=== PATIENT | male | born 1970 | race Caucasian/White ===

== ENCOUNTER 2020-02-07 08:20 | Outpatient (CLI) | payer OTHER, SELFPAY ==
[2020-02-07 08:32] LABS: Hematocrit 49.1 % (40.0-54.0); Hemoglobin 16.5 g/dL (14.0-18.0); Mean Corpuscular HGB Conc 33.6 g/dL (32.0-36.0); Mean Corpuscular Hemoglobin 31.4 pg (27.0-31.0); Mean Corpuscular Volume 93.3 fL (78.0-102.0); Platelet Count Result 222 K/mm3 (150-420); Red Blood Count 5.26 M/mm3 (4.70-6.10); Red Cell Distribution Width 14.4 % (11.6-14.4); White Blood Count 8.1 K/mm3 (4.8-10.8)
[2020-02-07 10:00] LABS: Alanine Aminotransferase 39 U/L (16-63); Albumin Level 3.9 g/dL (3.4-5.0); Alkaline Phosphatase 85 U/L (46-116); Anion Gap 11.9 mmol/L (7-16); Aspartate Amino Transferase 24 U/L (15-37); Bilirubin,Total 0.3 mg/dL (0.00-1.00); Blood Urea Nitrogen 13 mg/dL (7-18); Calcium 8.6 mg/dL (8.5-10.1); Carbon Dioxide 31 mmol/L (21-32); Chloride 104 mmol/L (98-108); Cholesterol 217 mg/dL (0-200); Estimated Glomerular Filt Rate > 60; Glucose 101 mg/dL (70-99); HDL Direct 61 mg/dL (40-60); LDL Cholesterol Calculated 144 mg/dL (<130); Osmolality Calculated 294 mOsm/kg (285-295); Potassium 4.9 mmol/L (3.5-5.1); Sodium 142 mmol/L (136-145); Total Protein 6.9 g/dL (6.4-8.2); Triglycerides 58 mg/dL (0-150)
== END 2020-02-07 08:21 | disposition home or self-care (01) ==
PROVIDERS: PCP Family Medicine; Visit Provider Family Medicine
DX: F41.1 Generalized anxiety disorder (principal); E78.5 Hyperlipidemia, unspecified
CPT/HCPCS: 36415; 80053; 80061; 85027

== ENCOUNTER 2023-01-13 09:19 | Emergency (ER) | payer OTHER, SELFPAY ==
[2023-01-13] VITALS (13 sets, daily range): BP systolic 142–157; BP diastolic 78–107; PULSE 65–75; RESP 14–19; TEMP 36.7; O2SAT 96–100
--- NOTE | ~2023-01-13 | XR_ITS ---
EXAMINATION: XR chest 2V 01/13/2023 10:38 INDICATION: Shortness of breath. Numbness to fingers. PROCEDURE: 2 view chest COMPARISON: No prior studies for comparison. FINDINGS: The lungs are clear. The cardiomediastinal silhouette is within normal limits. There are no pleural effusions. There is no pneumothorax suspected. There is a calcified granuloma of the rig ht upper lobe. IMPRESSION: 1: NO ACUTE CARDIOPULMONARY DISEASE. Reviewed, dictated and finalized at location B.
--- NOTE | ~2023-01-13 | CT_ITS ---
EXAMINATION: CT cervical spine wo con DATE: 01/13/2023 10:35 INDICATION: Right arm numbness. TECHNIQUE: Computed tomography (CT) of the cervical spine was performed without intravenous contrast. Automated exposure control and iterative reconstruction technique were employed. The dose-length pro duct was 288.65 mGy-cm. COMPARISON: None FINDINGS: There is mild emphysema. There is 8 degrees levocurvature of cervical spine. There is kypho sis of cervical spine. Vertebral body heights are normal. There is mildly decreased disc height at C2 -C3 and C3-C4, moderately decreased disc height at C4-C5, and severely decreased disc height at C5-C6 and C6-C7. The following disc levels are specifically discussed: C2-C3: There is mild bilateral uncovertebral joint osteoarthritis. There is severe bilateral facet sky int osteoarthritis. There is mild bilateral neural foraminal stenosis. There is no central canal sten osis. C3-C4: There is severe right and moderate left uncovertebral joint osteoarthritis. There is severe ri ght and mild left facet joint osteoarthritis. There is mild bilateral neural foraminal stenosis. Ther e is mild central canal stenosis. C4-C5: There is mild right and moderate left uncovertebral joint osteoarthritis. There is mild bilate ral facet joint osteoarthritis. There is mild bilateral neural foraminal stenosis. There is mild cent ral canal stenosis. C5-C6: There is mild right and severe left uncovertebral joint osteoarthritis. There is mild right fa cet joint osteoarthritis. There is mild right and moderate left neural foraminal stenosis. There is m ild central canal stenosis. C6-C7: There is severe bilateral uncovertebral joint osteoarthritis. There is no facet joint osteoart hritis. There is mild right and moderate left neural foraminal stenosis. There is mild central canal stenosis. C7-T1: There is no uncovertebral joint osteoarthritis. There is severe bilateral facet joint osteoart hritis. There is mild bilateral neural foraminal stenosis. There is mild central canal stenosis. IMPRESSION: 1. Severe cervical spondylosis. 2. Cervical kyphosis. Reviewed, dictated and finalized at location A.
--- NOTE | 2023-01-13 10:14 | ECG_ITS ---
Measurements Intervals [place] Rate: 71 P: 60 AK: 127 QRS: 61 QRSD: 86 T: 59 QT: 394 QTc: 428 Interpretive Statements SINUS RHYTHM POSSIBLE LEFT ATRIAL ENLARGEMENT DELAYED PRECORDIAL R/S TRANSITION BASELINE ARTIFACT- I, II, AVR, AVL BORDERLINE ECG NO PREVIOUS ECG AVAILABLE FOR COMPARISON Electronically Signed On 01-13-2023 11:07:22 CDT by Carlos Nieto D.O.
--- NOTE | 2023-01-13 10:30 | ED.GENADULT ---
HPI - General Adult General Chief complaint: Neuro Symptoms/Deficit Stated complaint: left hand numbness, sob, palpatations, nausea Time Seen by Provider: 01/13/23 09:51 History of Present Illness HPI narrative: This is a 52-year-old male who denies past medical history, presenting to the emergency department complaining of palpitations and shortness of breath for the past day. He is unsure of any recent changes in his health. The shortness of breath is exacerbated by physical exertion and alleviated with rest. He also complains of new onset left hand and wrist numbness. He denies trauma to the arm, manipulation of the neck or other recent illness. Related Data Home Medications Medication Instructions Recorded Confirmed escitalopram oxalate 10 mg tablet mg 01/13/23 Allergies Allergy/AdvReac Type Severity Reaction Status Date / Time No Known Allergies Allergy Verified 01/13/23 09:39 Review of Systems Review of Systems: CONSTITUTIONAL: Denies fever, chills, or sweats. CARDIOVASCULAR: Palpitations denies chest pain, or edema. RESPIRATORY: Dyspnea on exertion denies cough GASTROINTESTINAL: Denies abdominal pain, nausea, vomiting, or diarrhea. GENITOURINARY: Denies dysuria or hematuria. SKIN: Denies rash or itching. MUSCULOSKELETAL: Denies back pain, joint pain, or myalgia. NEUROLOGIC: Numbness and paresthesias of the left hand denies headache, dizziness, or weakness. PSYCHIATRIC: Denies anxiety or depression. [facility] Past Medical History Medical History (Updated 01/13/23 @ 12:48 by David Byrne MD) Cigarette nicotine dependence XIN (generalized anxiety disorder) Hyperlipidemia Surgical History Surgical History Hx of tonsillectomy Family History Family History Father Family history unknown Mother Family history unknown Social History Social History Smoking packs per day: 0.5 Smoking cigarettes per day: 10.0 Years smoked: 33 Smoking pack-years: 16.50 Smoking status: Current every day smoker Alcohol intake: current Alcohol use details: social Substance use: never Substance use type: does not use Living arrangements: with family Additional living arrangements comments: . 3 children. Exam Narrative: GENERAL: Well-developed, well-nourished, and in no acute distress. HEAD: Normocephalic, atraumatic. EYES: PERRLA and EOMI. ENT: Nares clear, no rhinorrhea or epistaxis. Mucous membranes moist. Oropharynx without tonsillar hypertrophy exudate or other lesions. NECK: Supple. No adenopathy or masses. No carotid bruits or JVD. No midline spine tenderness to palpation, no step-off or crepitus CHEST: Clear to auscultation. No respiratory distress. No wheezes rales or rhonchi HEART: Regular rate and rhythm. No murmur heard. Normal peripheral pulses. ABDOMEN: Soft, nontender, nondistended, normal active bowel sounds. EXTREMITIES: Normal range of motion. No edema. SKIN: Warm, dry, no rash. NEURO: No focal deficits. Alert and oriented x3. Strength 5/5 in all extremities, slightly decreased sensation in the radial nerve distribution of the left hand. No noted ataxia PSYCH: Normal mood and affect. Course Course Emergency Course: 10:33 - The patient's spouse provides additional information, noting the patient drinks upwards of 5 drinks a day and occasionally 15 drinks. She states she believes he last drank greater than 24 hours ago and has otherwise been sleeping. CIWA 2. 12:45 - CBC demonstrates mild white blood cell count elevation of 10.4 but is otherwise unremarkable. CMP demonstrates mild hyponatremia at 132 but is otherwise unremarkable. Troponin negative. BNP 151. Chest x-ray unremarkable. CT cervical spine demonstrates severe cervical spondylosis. I suspect the patient's radiculopathy is r
[2023-01-13 10:33] LABS: Basophils Absolute Auto 0.1 K/mm3 (0.0-0.1); Basophils Percent Auto 0.5 % (0.2-1.2); Eosinophils Percent Auto 0.3 % (0-4.4); Hemoglobin 16.5 g/dL (14.0-18.0); Immature Granulocyte Absolute 0.03 K/mm3 (0.00-0.031); Immature Granulocyte Percent A 0.3 % (0-0.5); Lymphocytes Absolute Auto 1.86 K/mm3 (0.9-3.2); Mean Corpuscular HGB Conc 33.7 g/dl (32-36); Mean Corpuscular Volume 92.1 fl (80-100); Monocytes Absolute Auto 0.7 K/mm3 (0.1-0.6); Monocytes Percent Auto 7.1 % (2.6-8.5); Neutrophils Absolute Auto 7.7 K/mm3 (1.3-6.7); Neutrophils Percent Auto 73.8 % (45.5-73.1); Platelet Count Result 269 k/mm3 (150-375); Red Blood Count 5.32 M/mm3 (4.6-6.20); Red Cell Distribution Width 14.2 % (11.5-14.5); White Blood Count 10.4 K/mm3 (4.5-10.0)
[2023-01-13 10:40] LABS: Ethanol < 10 mg/dL (<10)
[2023-01-13 10:46] LABS: Prothrombin Time 13.4 Seconds (11.1-14.7)
--- NOTE | 2023-01-13 11:01 | ECG_ITS ---
Measurements Intervals [place] Rate: 68 P: 66 MD: 130 QRS: 68 QRSD: 86 T: 70 QT: 399 QTc: 426 Interpretive Statements SINUS RHYTHM POSSIBLE LEFT ATRIAL ENLARGEMENT BORDERLINE ECG COMPARED TO ECG 01/13/2023 10:48:52 NO SIGNIFICANT CHANGES Electronically Signed On 01-15-2023 7:49:59 CDT by Carlos Nieto D.O.
[2023-01-13 11:44] LABS: Alanine Aminotransferase 26 U/L (6-50); Albumin Level 4.4 g/dL (3.5-5.1); Alkaline Phosphatase 80 U/L (38-126); Anion Gap 8 mmol/L (8-16); Aspartate Amino Transferase 33 U/L (17-59); Bilirubin,Total 0.9 mg/dL (0.2-1.3); Blood Urea Nitrogen 14 mg/dL (9-20); Calcium 8.7 mg/dL (8.4-10.2); Carbon Dioxide 25 mmol/L (22-30); Chloride 99 mmol/L (98-107); Estimated CRCL calculation 101 ml/min; Estimated Glomerular Filt Rate > 60; Glucose 87 mg/dL (65-110); Potassium 4.3 mmol/L (3.4-5.0); Sodium 132 mmol/L (137-145)
[2023-01-13 11:56] LABS: NT Pro B Type Natriuretic Pept 151 pg/mL (19.9-100); Troponin I < 0.012 ng/mL (0.000-0.034)
== END 2023-01-13 13:09 | disposition home or self-care (01) ==
PROVIDERS: Emergency Provider Preventive Medicine Aerospace Medicine; PCP Family Medicine
DX: M54.12 Radiculopathy, cervical region (principal); R20.2 Paresthesia of skin; F41.9 Anxiety disorder, unspecified; E78.5 Hyperlipidemia, unspecified; F17.210 Nicotine dependence, cigarettes, uncomplicated
CPT/HCPCS: 36415; 71046; 72125; 80053; 80307; 83880; 84484; 85025; 85610; 93005; 99284

== ENCOUNTER 2023-02-07 19:30 | Emergency (ER) | payer OTHER, SELFPAY ==
[2023-02-07 19:30] VITALS: BP 135/87; PULSE 80; RESP 18; TEMP 36.5; O2SAT 97
--- NOTE | 2023-02-07 19:37 | ED.WOUNDLAC ---
HPI - Wound/Laceration General Chief Complaint: Wound/Laceration Stated Complaint: right hand laceration Time Seen by Provider: 02/07/23 19:36 Source: patient and RN notes reviewed Mode of arrival: ambulatory Limitations: no limitations History of Present Illness Onset (ago): minute(s) (10) Extremity Location: Right: hand ( Cut it on a can) Place: home Patient tetanus UTD: No Context: accidental Associated symptoms: none Treatments prior to arrival: bandage Related Data Home Medications Medication Instructions Recorded Confirmed escitalopram oxalate 10 mg tablet 10 mg PO DAILY 01/13/23 02/07/23 Allergies Allergy/AdvReac Type Severity Reaction Status Date / Time No Known Allergies Allergy Verified 01/13/23 09:39 Review of Systems Review of Systems: All systems reviewed & are unremarkable except as noted in HPI and below PMFSH Past Medical History Medical History (Updated 02/07/23 @ 20:00 by Husam Flood MD) Cigarette nicotine dependence XIN (generalized anxiety disorder) Hyperlipidemia Surgical History Surgical History Hx of tonsillectomy Family History Family History Father Family history unknown Mother Family history unknown Social History Social History Smoking packs per day: 0.5 Smoking cigarettes per day: 10.0 Years smoked: 33 Smoking pack-years: 16.50 Smoking status: Current every day smoker Alcohol intake: current Alcohol use details: social Substance use: never Substance use type: does not use Living arrangements: with family Additional living arrangements comments: . 3 children. Exam Const: General: healthy appearing, no acute distress and alert Nutritional Appearance: well nourished Orientation/consciousness: patient oriented x3 Limitations: no limitations HENMT: Head: normal to inspection Ears: external ears normal Face/Nose/Sinus: Normal external nose present Face and sinus: normal facial exam Mouth: Yes moist mucous membranes Eyes: Conjunctivae: conjunctivae normal Pupils: Equal, round and reactive pupils present EOM: EOMs intact bilaterally Neck: Neck: normal visual inspection Resp: Effort & Inspection: normal respiratory effort Auscultation: clear to auscultation bilaterally Cardio: Rate: regular rate Rhythm: regular rhythm GI: GI Palp: Yes Soft to palpation and No Tenderness to palpation present (GI) Auscultation: normal bowel sounds Back/Spine/Pelvis: Cervical Spine: cervical ROM normal Thoracic/Lumbar Spine: thoraco-lumbar ROM normal Skin: General skin exam: normal color Wounds: wounds noted laceration right dorsal hand size (2 cm) and margins well approximated Neuro: General: patient oriented x3, moves all extremities, no focal motor deficits and CN's II-XI intact bilaterally Speech: normal speech Gait exam (Neuro): Normal gait present Extrem: General: normal to inspection and no clubbing, cyanosis or edema Psych: Mental Status: mental status grossly normal Affect: normal affect Attitude: cooperative Course Course Emergency Course: Tdap given Procedures Laceration Laceration 1: Date: 02/07/23 Site: upper extremity Side (If applicable): right Size (cm): 2 Description: linear Depth: simple, single layer Local Anesthetic: lidocaine 1% Amount of anesthesia used (mL): 7 Pre-repair: wound explored and irrigated ====== Skin Level ====== Skin layer closed with: nylon Size (cm): 4-0 Number of sutures: 8 Technique: running ====== Subcutaneous Layer ====== ====== Muscle Layer ====== ====== Tendon Layer ====== Dressing: nonstick dressing and [place] MDM - Wound/Laceration Differential Diagnosis Differential diagnosis: Likely laceration
[2023-02-07] MEDS: LIDOCAINE HCL 1% LOCAL INJ 10 ML VIAL INFILTRATE (19:45)
[2023-02-07] MEDS: TETANUS,DIPHTHERIA,AC PERTUSSIS ADULT 0.5 ML (ADACEL) IM (19:46)
[2023-02-07] MEDS: NEOMYCIN/POLYMYXIN/BACITRACIN OINTMENT PACKET 1 PACKET TOPICAL (19:49)
[2023-02-07 20:14] VITALS: BP 128/80; PULSE 82; RESP 20; TEMP 36.6; O2SAT 96
== END 2023-02-07 20:14 | disposition home or self-care (01) ==
LOC: CHSED 20:03
PROVIDERS: Emergency Provider Emergency Medicine; PCP Family Medicine
DX: S61.411A Laceration without foreign body of right hand, initial encounter (principal); E78.5 Hyperlipidemia, unspecified; F17.210 Nicotine dependence, cigarettes, uncomplicated; Z23 Encounter for immunization; W26.8XXA Contact with other sharp object(s), not elsewhere classified, initial encounter; Y92.009 Unspecified place in unspecified non-institutional (private) residence as the place of occurrence of the external cause
CPT/HCPCS: 12001; 90471; 90715; 99282